=== PATIENT | female | born 1950 | race Caucasian/White ===

== ENCOUNTER 2024-04-05 13:53 | Outpatient (AMB) | payer MEDICAID, SELFPAY ==
--- NOTE | 2024-04-05 14:07 | MHC.PC.OV ---
Vital Signs 04/05/24 14:11 Height 5 ft 0.9 in Weight 165 lb BMI 31.3 BP 138/80 Blood Pressure Location Rt brachial Position Sitting Pulse 87 Pulse Source Pulse Oximeter Pulse Oximetry (%) 96 Oxygen Delivery Method Room Air Intake Visit Reasons: New patient visit ok per Dr. Cintron Intake Note: Pt is here today for New patient visit. Allergies No Known Allergies Allergy (Verified 04/05/24 14:12) Medication List - Last Reconciled 04/05/24 by Shruthi Cintron MD bisoprolol fumarate 2.5 mg (1/2 x 5 mg) PO DAILY fluticasone furoate-vilanterol 100-25 mcg/dose (Breo Ellipta) 1 inh inhalation DAILY Tobacco use date assessed: 04/05/24 Fall risk assessment: No Falls in past year Last assessed Fall Risk: 04/05/24 Dental Screening Dental Screen Date: 04/05/24 Did you have a dental visit in the last 12 months?: No Did you have a dental problem in the last 6 months where you did not have access to dental care?: No Was dental information given to patient?: Patient declined HPI New patient visit ok per Dr. Cintron HPI Details Pt presents for [employer]ING [employer] visit. She moved from [place] few months ago. PMH includes HTN, hyperglycemia, question of COPD. Patient used to smoke but quit 20 years ago and reports intermittent chronic dry cough for which she use an inhaler with good relief. PFSH Medical History (Updated 04/05/24 @ 15:05 by Shruthi Cintron MD) Hx of tongue cancer Surgical History (Updated 04/05/24 @ 15:15 by Shruthi Cintron MD) Hx of cholecystectomy History of surgery of liver Family History Father Heart attack Hypertension Father Diabetes Social History Housing: House Patient Tobacco Use Status: Former Tobacco user (18 years ago) e-Cigarette/Vaping Use: Never Used service: No Current occupational status: retired Cognitive needs: No Hearing needs: No Vision needs: Yes Questionnaire PHQ-9 Over the last 2 weeks, how often have you been bothered by any of the following problems? 1. Little interest or pleasure in doing things: not at all 2. Feeling down, depressed, or hopeless: not at all 3. Trouble falling or staying asleep, or sleeping too much: not at all 4. Feeling tired or having little energy: several days 5. Poor appetite or overeating: not at all 6. Feeling bad about yourself - or that you are a failure or have let yourself or your family down: not at all 7. Trouble concentrating on things, such as reading the newspaper or watching television: not at all 8. Moving or speaking so slowly that other people could have noticed. Or the opposite - being so fidgety or restless that you have been moving around a lot more than usual: not at all 9. Thoughts that you would be better off or of hurting yourself in some way: not at all Total score: 1 Depression Screening Interpretation: Negative Depression Screening Done: Yes 80341 - PHQ-9 Billing: Yes Source: Developed by Drs. Carlitos Terry, Bryanna Reynoso, Jose Gilliam and colleagues, with an educational madan from [employer]. Thrive Questionnaire Date Thrive assessed: 04/03/24 I am a: Patient What is your living situation today?: I have a steady place to live Within the past 12 months, did the food you bought not last and you didn't have the money to get more?: I choose not to answer this question Within the past 12 months, did you worry whether your food would run out before you got money to buy more?: I choose not to answer this question Do you have trouble paying for medicines?: I choose not to answer this question Do you have trouble getting transportation to medical appointments?: I choose not to answer this question Do you have trouble paying your heating and electricity bill?: I choose not to answer this question Do you have trouble taking care of your child, family member or friend?: No Do you have trouble with day-to-day activities such as bathing, preparing meals, shopping, managing finances, etc.?: No Are you currently unemployed and looking for a job?: No Are you interested in more education?: No Please select the resources that you would like help with: None Currently or been in a relationship where the following occur: I choose not to answer THRIVE Score: 0 AUDIT C Alcohol Use Questionnaire (AUDIT-C) 1. How often do you have a drink containing alcohol?: Monthly or less 2. How many drinks containing alcohol do you have on a typical day when you are drinking?: 1 or 2 3. How often do you have six or more drinks on one occasion?: Never Total Score: 1 MICHELLE-7 AMB Questionnaire MICHELLE-7 Date MICHELLE - 7 assessed: 04/05/24 Feeling nervous, anxious, or on edge: 0 = Not at all Not being able to stop or control worryin = Not at all Worrying too much about different things: 1 = Several days Trouble relaxin = Not at all Being so restless that it is hard to sit still: 0 = Not at all Becoming easily annoyed or irritable: 1 = Several days Feeling afraid as if something awful might happen: 1 = Several days Total MICHELLE-7 score (0-4 normal; 5-9 mild; 10-14 moderate; 15-21 severe): 3 Source: Developed by Drs. Carlitos Terry, Bryanna Reynoso, Jose Gilliam and colleagues, with an educational madan from [employer]. MICHELLE-7 Assessment Billing MICHELLE-7 Assessment Tool: MICHELLE-7 Assessment 89173 Review of Systems Const All systems reviewed & are unremarkable except as noted in HPI and below Eyes Reports no additional complaints ENT Reports no additional complaints Card Reports no additional complaints Resp Reports no additional complaints GI Reports no additional complaints Reports no additional complaints Physical exam (Primary Care) Vital Signs: Last Vital Signs Pulse 87 04/05/24 14:11 Pulse Ox 96 04/05/24 14:11 Oxygen Delivery Method Room Air 04/05/24 14:11 BMI result Body Mass Index 31.3 Tobacco/Smoking Status: Tobacco use Status Tobacco use date assessed 04/05/24 04/05/24 14:25 Patient Tobacco Use Status Former Tobacco user (18 04/05/24 14:25 years ago) e-Cigarette/Vaping Use Never Used 04/05/24 14:25 PHQ-9: PHQ-9 Score PHQ-9: Total score 1 04/05/24 14:25 Depression Screening Interpretation: Negative Thrive Assessment: Date of Thrive Assessment Date Thrive assessed 04/03/24 04/05/24 14:07 Currently or been in a relationship where the following occur: I choose not to answer Const General: no acute distress HENMT Ears: hearing grossly normal bilaterally Face and sinus: Yes normal facial exam Throat: Yes posterior oropharynx normal Neck Neck: Yes no lymphadenopathy and Yes supple Resp Effort & Inspection: normal respiratory effort Auscultation: crackles (at bases b/l) and diminished lung sounds Cardio Rhythm: regular rhythm Heart sounds: S1 normal heart sound present and S2 normal heart sound present GI Inspection: Yes normal to inspection Palpation (GI): Soft to palpation Percussion: Yes normal to percussion Auscultation: normal bowel sounds Assessment and Plan Assessment & Plan (1) HTN (hypertension): Code(s): I10 - Essential (primary) hypertension Plan: Restart bisoprolol at 2.5 mg. Patient will return for fasting blood work and will follow-up in 6 weeks (2) Hyperglycemia: Code(s): R73.9 - Hyperglycemia, unspecified Plan: ADA diet increase physical activity weight loss discussed with the patient. Return for fasting labs including A1c (3) S/P cholecystectomy: Code(s): Z90.49 - Acquired absence of other specified parts of digestive tract (4) Hx of colonoscopy: Comment: 1 polyp 12/2023 in [place], patient will obtain a copy of pathology report Code(s): Z98.890 - Other specified postprocedural states Plan: Check pathology report from [facility] (5) Postmenopausal: Code(s): Z78.0 - Asymptomatic menopausal state Plan: Schedule mammogram and DEXA (6) Cough: Code(s): R05.9 - Cough, unspecified Plan: For chronic cough obtain chest x-ray (7) COPD (chronic obstructive pulmonary disease): Code(s): J44.9 - Chronic obstructive pulmonary disease, unspecified Plan: Try Breo 100 Orders: Orders MM screening mammo BI Today Z12.31 - Encounter for screening mammogram for malignant neoplasm of breast, Z78.0 - Asymptomatic menopausal state XR chest 2V Today R05.9 - Cough, unspecified Comprehensive [place]. Panel Fast Today I10 - Essential (primary) hypertension, J44.9 - Chronic obstructive pulmonary disease, unspecified, R73.9 - Hyperglycemia, unspecified TSH reflex Free T4 Today I10 - Essential (primary) hypertension, J44.9 - Chronic obstructive pulmonary disease, unspecified, R73.9 - Hyperglycemia, unspecified Hemoglobin A1c Today I10 - Essential (primary) hypertension, J44.9 - Chronic obstructive pulmonary disease, unspecified, R73.9 - Hyperglycemia, unspecified UA w Microscopic Today I10 - Essential (primary) hypertension, R73.9 - Hyperglycemia, unspecified XR DEXA axial skeleton Today Z78.0 - Asymptomatic menopausal state Complete Blood Count Auto Diff Today I10 - Essential (primary) hypertension, J44.9 - Chronic obstructive pulmonary disease, unspecified, R73.9 - Hyperglycemia, unspecified Lipid Panel Today I10 - Essential (primary) hypertension, J44.9 - Chronic obstructive pulmonary disease, unspecified, R73.9 - Hyperglycemia, unspecified Vitamin D 25-OH Total Today I10 - Essential (primary) hypertension, J44.9 - Chronic obstructive pulmonary disease, unspecified, R73.9 - Hyperglycemia, unspecified Microalbumin, Random (w Creat) Today I10 - Essential (primary) hypertension, R73.9 - Hyperglycemia, unspecified Medications: New bisoprolol fumarate 2.5 mg (1/2 x 5 mg) PO DAILY 90 tabs 0RF fluticasone furoate-vilanterol 100-25 mcg/dose (Breo Ellipta) 1 inh inhalation DAILY 60 ea 2RF Coding Level of Care Code New Pt Level 4 (31287) Diagnoses HTN (hypertension) I10 Hyperglycemia R73.9 S/P cholecystectomy Z90.49 Hx of colonoscopy Z98.890 Postmenopausal Z78.0 Cough R05.9 COPD (chronic obstructive pulmonary disease) J44.9 Additional Codes MICHELLE-7 Assessment Billing - MICHELLE-7 Assessment Tool: MICHELLE-7 Assessment 16215 ([id number])
[2024-04-05 14:11] VITALS: BP 138/80; PULSE 87; O2SAT 96; BMI 31.3
== END 2024-04-05 15:15 | disposition home or self-care (01) ==
PROVIDERS: Visit Provider Internal Medicine
DX: I10 Essential (primary) hypertension (principal); R73.9 Hyperglycemia, unspecified; Z90.49 Acquired absence of other specified parts of digestive tract; Z98.890 Other specified postprocedural states; Z78.0 Asymptomatic menopausal state; R05.9 Cough, unspecified; J44.9 Chronic obstructive pulmonary disease, unspecified

== ENCOUNTER → 2024-04-05 13:53 | Outpatient (BNVA) | payer MEDICAID, SELFPAY | PROVIDERS: Visit Provider Internal Medicine ==

== ENCOUNTER 2024-04-05 15:14 | Outpatient (REF) | payer MEDICAID, SELFPAY ==
--- NOTE | ~2024-04-05 | XR_ITS ---
EXAMINATION: XR CHEST CLINICAL INFORMATION: Cough COMPARISON: None available. TECHNIQUE: 2 views of the chest were obtained. FINDINGS: Heart and mediastinum within normal limits. Aortic and mitral annular calcifications. No vascular congestion, consolidations and minor basilar atelectasis. Degenerative changes and demineralization. Multilevel dorsal compression deformities. XR/XR chest 2V IMPRESSION: Minor atelectasis otherwise no acute cardiopulmonary disease. Electronically signed by: Marta Longoria MD 04/05/2024 05:49 PM EDT
== END 2024-04-05 15:15 | disposition home or self-care (01) ==
LOC: HO.HMGCX 15:14
PROVIDERS: PCP Internal Medicine; Visit Provider Internal Medicine
DX: R05.9 Cough, unspecified (principal); I10 Essential (primary) hypertension; J44.9 Chronic obstructive pulmonary disease, unspecified; Z78.0 Asymptomatic menopausal state; R73.9 Hyperglycemia, unspecified; Z90.49 Acquired absence of other specified parts of digestive tract; Z98.890 Other specified postprocedural states
CPT/HCPCS: 71046; 96127; 99202

== ENCOUNTER 2024-04-09 08:29 | Outpatient (REF) | payer MEDICAID, SELFPAY ==
[2024-04-09 11:00] LABS: Appearance Urine Clear; Color Urine Yellow; Glucose Urine UA Negative (Negative); Leukocyte Esterase Urine Moderate (2+) (Negative); Nitrite Urine Negative (Negative); PH 6.5 (5.0-9.0); UMIC TRIGGER UA YES; Urine Blood Negative (Negative); Urine Ketones Negative (Negative); Urine Protein Trace mg/dL (Neg-Trace)
[2024-04-09 11:03] LABS: Bacteria Urine None Seen (None Seen); Hyaline Casts Urine 0-2 /LPF (0-2); RBC Urine 0-2 /HPF (0-2)
[2024-04-09 11:21] LABS: MANUAL DIFF FLAG NO
[2024-04-09 11:28] LABS: Basophils Percent Auto 0.6 % (0-2); Eosinophils Absolute Auto 0.1 X10*3/uL (0.0-0.4); Eosinophils Percent Auto 1.9 % (0-4); Hematocrit 43.3 % (37.0-47.0); Hemoglobin 14.2 g/dl (12.0-16.0); Imm Gran Abs Auto 0.01 X10*3/uL (0.00-0.03); Imm Gran Pct Auto 0.2 % (0.0-0.4); Lymphocytes Absolute Auto 1.1 X10*3/uL (1.2-4.9); Lymphocytes Percent Auto 16.6 % (20-40); Mean Corpuscular HGB Conc 32.8 g/dl (31.0-35.0); Mean Corpuscular Hemoglobin 30.5 pg (27.0-33.0); Mean Corpuscular Volume 93.1 fL (80.0-98.0); Mean Platelet Volume 11.5 fL (9.4-12.3); Monocytes Absolute Auto 0.5 X10*3/uL (0.1-1.2); Monocytes Percent Auto 8.3 % (2-11); Neutrophils Absolute Auto 4.6 x10*3/uL (2.0-8.3); Neutrophils Percent Auto 72.4 % (45-73); Platelet Count 203 X10*3/uL (160-400); Red Blood Count 4.65 X10*6/uL (4.20-5.50); White Blood Count 6.4 X10*3/uL (4.8-10.8)
[2024-04-09 11:56] LABS: Alanine Aminotransferase 15 U/L (0-31); Albumin Level 4.4 g/dL (3.5-5.0); Alkaline Phosphatase 53 U/L (39-117); Anion Gap 10 (12-20); Aspartate Amino Transferase 22 U/L (5-31); Bilirubin Total 0.6 mg/dL (0.0-1.0); Blood Urea Nitrogen 15 mg/dL (9-16); Calcium 9.7 mg/dL (8.4-10.2); Carbon Dioxide 30 mmol/L (22-29); Chloride 104 mmol/L (96-108); Cholesterol 190 mg/dL (<200); Estimated Glomerular Filt Rate > 60; Glucose Fasting 107 mg/dL (60-99); HDL Cholesterol 55 mg/dL (>40); LDL Cholesterol Calculated 113 mg/dL (<100); Potassium 4.4 mmol/L (3.3-5.1); Sodium 140 mmol/L (135-145); Total Protein 7.1 g/dL (6.5-8.0); Triglycerides 113 mg/dL (<150)
[2024-04-09 11:58] LABS: TSH reflex Free T4 0.99 uIU/mL (0.32-4.0); Vitamin D 25-OH Total 47.3 ng/mL (>30)
[2024-04-09 12:10] LABS: Creatinine Urine 169.49 mg/dL; Microalbum/Creatinine Ratio Ur 27.1 ug/mg cr (<30)
[2024-04-09 12:11] LABS: Estimated Average Glucose 103 mg/dL; Hemoglobin A1C 120.3211 umol/L; Hemoglobin A1c % 5.2 % (<6.0)
== END 2024-04-09 08:30 | disposition home or self-care (01) ==
LOC: HO.HMGCLDS 08:29
PROVIDERS: PCP Internal Medicine; Visit Provider Internal Medicine
DX: I10 Essential (primary) hypertension (principal); R73.9 Hyperglycemia, unspecified; J44.9 Chronic obstructive pulmonary disease, unspecified
CPT/HCPCS: 36415; 80053; 80061; 81001; 82043; 82306; 82570; 83036; 84443; 85025

== ENCOUNTER 2024-05-25 08:21 | Outpatient (REF) | payer MEDICAID, SELFPAY ==
[2024-05-25 14:28] LABS: Folate 15.3 ng/mL (> or = 4.0); Vitamin B12 289 pg/mL (200-900)
== END 2024-05-25 08:22 | disposition home or self-care (01) ==
LOC: HO.HMGCLDS 08:21
PROVIDERS: PCP Internal Medicine; Visit Provider Internal Medicine
DX: G62.9 Polyneuropathy, unspecified (principal); G56.02 Carpal tunnel syndrome, left upper limb; M79.604 Pain in right leg; M79.605 Pain in left leg; I10 Essential (primary) hypertension; I73.9 Peripheral vascular disease, unspecified
CPT/HCPCS: 36415; 82607; 82746; 96127; 99212

== ENCOUNTER 2024-05-25 08:21 | Outpatient (AMB) | payer MEDICAID, SELFPAY ==
[2024-05-25 08:26] VITALS: BP 138/84; PULSE 70; O2SAT 96; BMI 31.5
--- NOTE | 2024-05-25 08:26 | A.OFFPC_ITS ---
Vital Signs 05/25/24 08:26 Height 5 ft 0.9 in Weight 166 lb BMI 31.5 BP 138/84 Blood Pressure Location Lt brachial Position Sitting Pulse 70 Pulse Source Pulse Oximeter Pulse Oximetry (%) 96 Oxygen Delivery Method Room Air Intake Visit Reasons: 6-7 week follow up Intake Note: Pt is here today for a follow up visit. Allergies No Known Allergies Allergy (Verified 05/25/24 08:33) Medication List - Last Reconciled 05/25/24 by Shruthi Cintron MD bisoprolol fumarate 2.5 mg (1/2 x 5 mg) PO DAILY fluticasone furoate-vilanterol 100-25 mcg/dose (Breo Ellipta) 1 inh inhalation DAILY gabapentin 300 mg PO BEDTIME Tobacco use date assessed: 04/05/24 Dental Screening Dental Screen Date: 04/05/24 HPI 6-7 week follow up HPI Details Pt presents for f/u HTN and COPD, better on meds. Pt c/o L hand tingling and weakness getting wose and bilateral foot tingling worse when walking. Pt denies weakness in extremities or change in the balance. REPLACED BY [facility] Medical History (Updated 05/25/24 @ 11:03 by Shruthi Cintron MD) Hx of tongue cancer Surgical History Hx of cholecystectomy History of surgery of liver Family History Father Heart attack Hypertension Father Diabetes Social History Housing: House Patient Tobacco Use Status: Former Tobacco user (18 years ago) e-Cigarette/Vaping Use: Never Used service: No Current occupational status: retired Cognitive needs: No Hearing needs: No Vision needs: Yes Questionnaire PHQ-9 Over the last 2 weeks, how often have you been bothered by any of the following problems? 1. Little interest or pleasure in doing things: not at all 2. Feeling down, depressed, or hopeless: not at all 3. Trouble falling or staying asleep, or sleeping too much: not at all 4. Feeling tired or having little energy: not at all 5. Poor appetite or overeating: not at all 6. Feeling bad about yourself - or that you are a failure or have let yourself or your family down: not at all 7. Trouble concentrating on things, such as reading the newspaper or watching television: several days 8. Moving or speaking so slowly that other people could have noticed. Or the opposite - being so fidgety or restless that you have been moving around a lot more than usual: not at all 9. Thoughts that you would be better off or of hurting yourself in some way: not at all Total score: 1 Depression Screening Interpretation: Negative Depression Screening Done: Yes 75022 - PHQ-9 Billing: Yes Source: Developed by Drs. Carlitos Terry, Bryanna Reynoso, Jose Gilliam and colleagues, with an educational madan from [employer]. Thrive Questionnaire Date Thrive assessed: 04/03/24 I am a: Patient What is your living situation today?: I have a steady place to live Within the past 12 months, did the food you bought not last and you didn't have the money to get more?: I choose not to answer this question Within the past 12 months, did you worry whether your food would run out before you got money to buy more?: I choose not to answer this question Do you have trouble paying for medicines?: I choose not to answer this question Do you have trouble getting transportation to medical appointments?: I choose not to answer this question Do you have trouble paying your heating and electricity bill?: I choose not to answer this question Do you have trouble taking care of your child, family member or friend?: No Do you have trouble with day-to-day activities such as bathing, preparing meals, shopping, managing finances, etc.?: No Are you currently unemployed and looking for a job?: No Are you interested in more education?: No Please select the resources that you would like help with: None Currently or been in a relationship where the following occur: I choose not to answer THRIVE Score: 0 MICHELLE-7 AMB Questionnaire MICHELLE-7 Date MICHELLE - 7 assessed: 04/05/24 Source: Developed by Drs. Carlitos Terry, Jose Shukla and colleagues, with an educational madan from [employer]. Review of Systems Const All systems reviewed & are unremarkable except as noted in HPI and below Eyes Reports no additional complaints ENT Reports no additional complaints Card Reports no additional complaints Resp Reports no additional complaints GI Reports no additional complaints Reports no additional complaints Musc Reports no additional complaints Physical exam (Primary Care) Vital Signs: Last Vital Signs Pulse 70 05/25/24 08:26 BP 138/84 05/25/24 08:26 Pulse Ox 96 05/25/24 08:26 Oxygen Delivery Method Room Air 05/25/24 08:26 BMI result Body Mass Index 31.5 Tobacco/Smoking Status: Tobacco use Status Tobacco use date assessed 04/05/24 05/25/24 08:26 Patient Tobacco Use Status Former Tobacco user (18 05/25/24 08:26 years ago) e-Cigarette/Vaping Use Never Used 05/25/24 08:26 PHQ-9: PHQ-9 Score PHQ-9: Total score 1 05/25/24 09:57 Depression Screening Interpretation: Negative Thrive Assessment: Date of Thrive Assessment Date Thrive assessed 04/03/24 05/25/24 08:26 Currently or been in a relationship where the following occur: I choose not to answer Const General: no acute distress HENMT Ears: hearing grossly normal bilaterally Eyes General: appearance normal, both eyes and all related structures Resp Effort & Inspection: normal respiratory effort Auscultation: clear to auscultation bilaterally Cardio Rhythm: regular rhythm Heart sounds: S1 normal heart sound present and S2 normal heart sound present GI Inspection: Yes normal to inspection Palpation (GI): Soft to palpation Percussion: Yes normal to percussion Auscultation: normal bowel sounds Neuro Romberg Test: Negative Extrem Other: There is decreased sensation both lower extremities to monofilament and vibration at the lower socks level General: Yes no clubbing, cyanosis or edema Coding Level of Care Code Est Pt Level 4 (57195) Complex EM visit Add On G2211 Diagnoses Carpal tunnel syndrome of left wrist G56.02 Neuropathy G62.9 Leg pain, bilateral M79.604; M79.605 HTN (hypertension) I10 Additional Codes PHQ-9 - 89210 - PHQ-9 Billing: Yes ([id number]) Assessment & Plan Assessment & Plan (1) Carpal tunnel syndrome of left wrist: Code(s): G56.02 - Carpal tunnel syndrome, left upper limb Category: Medical Plan: Check EMG to evaluate for carpal tunnel syndrome (2) Neuropathy: Code(s): G62.9 - Polyneuropathy, unspecified Category: Medical Plan: Check vitamin B12 level start gabapentin 300 mg q.h.s. (3) Leg pain, bilateral: Code(s): M79.604 - Pain in right leg; M79.605 - Pain in left leg Category: Medical Plan: Obtain arterial Doppler to evaluate for peripheral artery disease (4) HTN (hypertension): Code(s): I10 - Essential (primary) hypertension Category: Medical Plan: Add 10 mg of lisinopril to 2.5 mg of bisoprolol follow-up in 1 month Orders: Orders NE electromyogram (EMG) Today G56.02 - Carpal tunnel syndrome, left upper limb Vitamin B12 and Folate Today G62.9 - Polyneuropathy, unspecified US arterial duplex LE BI Today G62.9 - Polyneuropathy, unspecified, I73.9 - Peripheral vascular disease, unspecified, M79.604 - Pain in right leg, M79.605 - Pain in left leg Medications: New gabapentin 300 mg PO BEDTIME 30 caps 1RF lisinopril 10 mg PO DAILY 90 tabs 1RF
== END 2024-05-25 09:54 | disposition home or self-care (01) ==
LOC: HO.HMCC 08:22
PROVIDERS: Visit Provider Internal Medicine
DX: G56.02 Carpal tunnel syndrome, left upper limb (principal); G62.9 Polyneuropathy, unspecified; M79.604 Pain in right leg; M79.605 Pain in left leg; I10 Essential (primary) hypertension

== ENCOUNTER 2024-06-07 07:44 | Outpatient (REF) | payer MEDICAID, SELFPAY ==
--- NOTE | 2024-06-07 07:47 | EMG_ITS ---
Left median and ulnar motor and sensory studies were performed. Left radial sensory study was performed and paraspinal muscles were tested with a needle. IMPRESSION: Moderate to severe left median neuropathy across carpal tunnel. MD MARCELO Leon/BERTRAND / [id number]
== END 2024-06-07 07:45 | disposition home or self-care (01) ==
LOC: HO.NEURO 07:44
PROVIDERS: PCP Internal Medicine; Visit Provider Internal Medicine
DX: G56.02 Carpal tunnel syndrome, left upper limb (principal)
CPT/HCPCS: 95886; 95909

== ENCOUNTER 2024-06-09 08:14 | Outpatient (REF) | payer MEDICAID, SELFPAY ==
--- NOTE | ~2024-06-09 | MM_ITS ---
EXAMINATION: BONE DENSITOMETRY CLINICAL INDICATION: Asymptomatic menopausal state. COMPARISON: This is the patient's baseline examination. TECHNIQUE: Using a [employer] DXA System (software version: 13.1) manufactured by [employer], dual-energy x-ray absorptiometry was performed of the lumbar spine and left hip. The images are of good technical quality. Summary results are attached. FINDINGS: LEFT FEMUR, NECK: BMD 0.915 g/cm2, Z-score 0.7, T-score -0.9, normal. LEFT FEMUR, TOTAL: BMD 0.967 g/cm2, Z-score 1.1, T-score -0.3, normal. AP SPINE L1-L2 (excluding L3 and L4): The data of L1-L4 has been changed to exclude the L3 and L4 vertebral bodies, because significant degenerative change at these levels may cause overestimation of lumbar spine density. BMD 1.202 g/cm2, Z-score 1.7, T-score 0.3, normal. IDENTIFIED RISK FACTORS: Menopause, secondary osteoporosis (chronic liver disease). HISTORY OF FRACTURE: None listed. MEDICATIONS: Vitamin D. MM/XR DEXA axial skeleton IMPRESSION: 1. DIAGNOSIS: Normal bone density based on the lowest T-score value of -0.9 in the femoral neck applying World Health Organization criteria. 2. 10-YEAR FRACTURE RISK PREDICTION, FRAX: According to the guidelines, FRAX calculation should only be performed on patients in the osteopenia bone density category. Therefore, FRAX was not performed on this patient. 3. Treatment Recommendations: NOF guidelines recommend consideration for treatment in postmenopausal women and men age 50 and older presenting with the following: -A hip or vertebral (clinical or morphometric) fracture. -T-score less than or equal to -2.5 at the femoral neck or spine after appropriate evaluation to exclude secondary causes. -Low bone mass at the hip or spine and a 10-year fracture probability by FRAX of greater than or equal to 3% for hip fracture or greater than or equal to 20% for major osteoporotic fracture based on the [place] adapted WHO algorithm. 4. Other Recommendations: All treatment decisions require clinical judgment and consideration of individual patient factors, including patient preferences, comorbidities, previous drug use, risk factors not captured in the FRAX model (e.g. frailty, falls, vitamin D deficiency, increased bone turnover, interval significant decline in bone density) and possible under or overestimation of fracture risk by FRAX. FUTURE SCAN RECOMMENDATION: People with diagnosed cases of osteoporosis or at high risk for fracture should have regular bone mineral density tests. For patients eligible for Medicare, routine testing is allowed once every 2 years. The testing frequency can be increased to one year for patients who have rapidly progressing disease, those who are receiving or discontinuing medical therapy to restore bone mass, or have additional risk factors. Electronically signed by: Joe Rosado MD 06/09/2024 12:01 PM [facility]
--- NOTE | ~2024-06-09 | MM_ITS ---
EXAMINATION: MM SCREENING DIGITAL BREAST TOMOSYNTHESIS, BILATERAL CLINICAL INFORMATION: Screening. Asymptomatic. COMPARISON: Mammography: Baseline. TECHNIQUE: Digital breast mammography with tomosynthesis is performed in both the craniocaudal and mediolateral oblique views along with computer-aided detection (CAD). FINDINGS: There are scattered areas of fibroglandular density (ACR BI-RADS breast composition Category b). There are no significant masses, abnormal calcifications, or other abnormalities. MM/MM tomosynthesis screening BI IMPRESSION: No mammographic evidence of malignancy. ASSESSMENT: BI-RADS BI-RADS 1 - Negative RECOMMENDATION: Routine annual mammography screening. 1 year F/U This examination should not preclude the clinical evaluation of a suspicious palpable abnormality. This patient's information was entered into a reminder system with a target due date for their next mammogram. Electronically signed by: Sara Small DO 06/20/2024 09:11 AM [facility]
== END 2024-06-09 08:15 | disposition home or self-care (01) ==
LOC: HO.MAMMO 08:14
PROVIDERS: PCP Internal Medicine; Visit Provider Internal Medicine
DX: Z12.31 Encounter for screening mammogram for malignant neoplasm of breast (principal); Z13.820 Encounter for screening for osteoporosis; Z78.0 Asymptomatic menopausal state
CPT/HCPCS: 77063; 77067; 77080

== ENCOUNTER → 2024-06-09 08:30 | Outpatient (BNV) | payer MEDICAID, SELFPAY | PROVIDERS: PCP Internal Medicine; Visit Provider Internal Medicine | DX: Z12.31 Encounter for screening mammogram for malignant neoplasm of breast (principal) | CPT/HCPCS: 77063; 77067 ==

== ENCOUNTER 2024-06-13 08:21 | Outpatient (REF) | payer MEDICAID, SELFPAY ==
--- NOTE | ~2024-06-13 | US_ITS ---
EXAMINATION: Noninvasive assessment of the bilateral lower extremities with ARTERIAL DUPLEX, ANKLE BRACHIAL INDICES (ABIs), and PULSE VOLUME RECORDINGS (PVRs). CLINICAL INFORMATION: Polyneuropathy TECHNIQUE: Duplex Doppler techniques with waveform analysis and measurement of velocities in the bilateral common femoral, profunda femoris, superficial femoral, popliteal and tibial arteries were performed. Additionally, ankle pulse volume recordings, ankle pressure measurements and ankle brachial indices were obtained of the lower extremity arterial system bilaterally. The study was performed only at rest. COMPARISON: None FINDINGS: DIRECT DUPLEX DOPPLER FINDINGS: RIGHT LEG: Common femoral artery: 99 cm/s, phasicity: Biphasic Profunda femoris artery: 65 cm/s, phasicity: Biphasic Superficial femoral artery (proximal): 70 cm/s, phasicity: Biphasic Superficial femoral artery (mid): 62 cm/s, phasicity: Biphasic Superficial femoral artery (distal): 49 cm/s, phasicity: Biphasic Popliteal artery: 62 cm/s, phasicity: Biphasic Posterior tibial artery: 60 cm/s, phasicity: Biphasic Peroneal artery: 65 cm/s, phasicity: Biphasic Anterior tibial artery: 55 cm/s, phasicity: Biphasic Dorsalis pedis artery: 67 cm/s, phasicity:Biphasic LEFT LEG: Common femoral artery: 104 cm/s, phasicity: Triphasic Profunda femoris artery: 47 cm/s, phasicity: Monophasic Superficial femoral artery (proximal): 66 cm/s, phasicity: Biphasic Superficial femoral artery (mid): 47 cm/s, phasicity: Biphasic Superficial femoral artery (distal): 45 cm/s, phasicity: Biphasic Popliteal artery: 56 cm/s, phasicity: Biphasic Posterior tibial artery: 68 cm/s, phasicity: Biphasic Peroneal artery: 44 cm/s, phasicity: Biphasic Anterior tibial artery: 59 cm/s, phasicity: Biphasic Dorsalis pedis artery: 62 cm/s, phasicity: Biphasic Left Hendrickson's cyst measures 5.1 x 1.8 x 3.9 cm. US/US arterial duplex LE BI IMPRESSION: 1. No evidence of hemodynamically significant stenosis in the bilateral lower extremities by velocity criteria. 2. Dampened velocity and waveform in the left profunda femoris artery suggests atherosclerotic disease. 3. Left Hendrickson's cyst measures 5.1 cm. Electronically signed by: Elinor Lewis MD 07/15/2024 05:40 PM EST
== END 2024-06-13 08:22 | disposition home or self-care (01) ==
LOC: HO.US 08:21
PROVIDERS: PCP Internal Medicine; Visit Provider Internal Medicine
DX: M79.605 Pain in left leg (principal); M79.604 Pain in right leg; G62.9 Polyneuropathy, unspecified; I73.9 Peripheral vascular disease, unspecified
CPT/HCPCS: 93925

== ENCOUNTER 2024-06-29 13:37 | Outpatient (AMB) | payer MEDICAID, SELFPAY ==
[2024-06-29 13:39] VITALS: BP 128/80; PULSE 65; O2SAT 97; BMI 31.7
--- NOTE | 2024-06-29 13:39 | MHC.PC.OV ---
Vital Signs 06/29/24 13:39 Height 5 ft 0.9 in Weight 167 lb BMI 31.7 BP 128/80 Blood Pressure Location Rt brachial Position Sitting Pulse 65 Pulse Source Pulse Oximeter Pulse Oximetry (%) 97 Oxygen Delivery Method Room Air Intake Visit Reasons: 5 week f/u Intake Note: Pt is here today for 5 weeks follow up visit. Allergies No Known Allergies Allergy (Verified 06/29/24 13:41) Medication List - Last Reconciled 06/29/24 by Shruthi Cintron MD bisoprolol fumarate 2.5 mg (1/2 x 5 mg) PO DAILY fluticasone furoate-vilanterol 100-25 mcg/dose (Breo Ellipta) 1 inh inhalation DAILY gabapentin 300 mg PO BEDTIME lisinopril 10 mg PO DAILY Tobacco use date assessed: 04/05/24 Dental Screening Dental Screen Date: 04/05/24 HPI 5 week f/u HPI Details Patient presents for the follow-up on hypertension COPD stable on current medications. She has an appointment scheduled with hand surgeon for left carpal tunnel . Patient complains of chronic right groin pain worse when walking for long time radiating to upper thigh. Patient denies any pain at rest, lower back pain weakness or numbness in extremities or back pain. [facility] Medical History (Updated 06/29/24 @ 15:14 by Shruthi Cintron MD) Hx of tongue cancer Surgical History Hx of cholecystectomy History of surgery of liver Family History Father Heart attack Hypertension Father Diabetes Social History Housing: House Patient Tobacco Use Status: Former Tobacco user (18 years ago) e-Cigarette/Vaping Use: Never Used service: No Current occupational status: retired Cognitive needs: No Hearing needs: No Vision needs: Yes Questionnaire Thrive Questionnaire Date Thrive assessed: 04/03/24 I am a: Patient What is your living situation today?: I have a steady place to live Within the past 12 months, did the food you bought not last and you didn't have the money to get more?: I choose not to answer this question Within the past 12 months, did you worry whether your food would run out before you got money to buy more?: I choose not to answer this question Do you have trouble paying for medicines?: I choose not to answer this question Do you have trouble getting transportation to medical appointments?: I choose not to answer this question Do you have trouble paying your heating and electricity bill?: I choose not to answer this question Do you have trouble taking care of your child, family member or friend?: No Do you have trouble with day-to-day activities such as bathing, preparing meals, shopping, managing finances, etc.?: No Are you currently unemployed and looking for a job?: No Are you interested in more education?: No Please select the resources that you would like help with: None Currently or been in a relationship where the following occur: I choose not to answer THRIVE Score: 0 MICHELLE-7 AMB Questionnaire MICHELLE-7 Date MICHELLE - 7 assessed: 04/05/24 Source: Developed by Drs. Carlitos Terry, Bryanna Reynoso, Jose Gilliam and colleagues, with an educational madan from [employer]. Review of Systems Const All systems reviewed & are unremarkable except as noted in HPI and below Eyes Reports no additional complaints ENT Reports no additional complaints Card Reports no additional complaints Resp Reports no additional complaints GI Reports no additional complaints Reports no additional complaints Physical exam (Primary Care) Vital Signs: Last Vital Signs Pulse 65 06/29/24 13:39 BP 128/80 06/29/24 13:39 Pulse Ox 97 06/29/24 13:39 Oxygen Delivery Method Room Air 06/29/24 13:39 BMI result Body Mass Index 31.7 Tobacco/Smoking Status: Tobacco use Status Tobacco use date assessed 04/05/24 06/29/24 13:39 Patient Tobacco Use Status Former Tobacco user (18 06/29/24 13:39 years ago) e-Cigarette/Vaping Use Never Used 06/29/24 13:39 Thrive Assessment: Date of Thrive Assessment Date Thrive assessed 04/03/24 06/29/24 13:39 Currently or been in a relationship where the following occur: I choose not to answer Const General: no acute distress HENMT Head: Yes normal to inspection Throat: Yes posterior oropharynx normal Resp Effort & Inspection: normal respiratory effort Auscultation: clear to auscultation bilaterally Cardio Rhythm: regular rhythm Heart sounds: S1 normal heart sound present and S2 normal heart sound present GI Inspection: Yes normal to inspection Palpation (GI): Soft to palpation Percussion: Yes normal to percussion Auscultation: normal bowel sounds Extrem Other: Slightly decreased range of motion in the right hip, straight leg rising 90 degrees bilaterally, no reproducible tenderness over trochanteric or anterior thigh area General: Yes no clubbing, cyanosis or edema Coding Level of Care Code Est Pt Level 4 (55139) Diagnoses Hip pain, right M25.551 HTN (hypertension) I10 COPD (chronic obstructive pulmonary disease) J44.9 Hyperglycemia R73.9 Assessment & Plan Assessment & Plan (1) Hip pain, right: Code(s): M25.551 - Pain in right hip Category: Medical Plan: Check x-ray of right hip, hip flexor exercises given to the patient. She declined physical therapy (2) HTN (hypertension): Code(s): I10 - Essential (primary) hypertension Category: Medical Plan: Increase lisinopril to 20 mg a day continue bisoprolol, check basic metabolic panel in 10 days follow-up in 3 months (3) COPD (chronic obstructive pulmonary disease): Code(s): J44.9 - Chronic obstructive pulmonary disease, unspecified Category: Medical Plan: Continue Breo (4) Hyperglycemia: Comment: Diet-controlled, A1C 5.2 04/2024 Code(s): R73.9 - Hyperglycemia, unspecified Category: Medical Plan: Continue ADA diet Orders: Orders Basic Metabolic Panel 07/09/24 I10 - Essential (primary) hypertension XR hip RT w PEL1V Today M25.551 - Pain in right hip Medications: Changed From lisinopril 10 mg PO DAILY 90 tabs 1RF To lisinopril 10 mg PO BID 180 tabs 1RF
== END 2024-06-29 15:19 | disposition home or self-care (01) ==
PROVIDERS: Visit Provider Internal Medicine
DX: M25.551 Pain in right hip (principal); I10 Essential (primary) hypertension; J44.9 Chronic obstructive pulmonary disease, unspecified; R73.9 Hyperglycemia, unspecified

== ENCOUNTER 2024-07-06 14:10 | Outpatient (AMB) | payer MEDICAID, SELFPAY ==
[2024-07-06 14:16] VITALS: BMI 24.7
--- NOTE | 2024-07-06 14:16 | A.OFFVIS_ITS ---
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 States she is having numbness, weakness and weakness. Symptoms started to worsen about 6 months ago and has been constant. States she is having numbness in all her fingers daily. EMG done. 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 She is here with her son in law who acts as a high voltage electrician She complains of numbness in all digits of her left hand. She says her symptoms have worsened over the last 6 months and are now constant. She also complains of weakness and says she drops items often. [facility] Medical History (Updated 06/29/24 @ 15:14 by Shruthi Cintron MD) Hx of tongue cancer Surgical History Hx of cholecystectomy History of surgery of liver Family History Father Heart attack Hypertension Father Diabetes Social History (Updated 07/06/24 @ 14:24 by VAL Reyes) Housing: House Patient Tobacco Use Status: Former Tobacco user (18 years ago) e-Cigarette/Vaping Use: Never Used service: No Current occupational status: retired Current occupation: right hand Cognitive needs: No Hearing needs: No Vision needs: Yes Review of Systems Const All systems reviewed & are unremarkable except as noted in HPI and below Physical Exam Vital Signs: BMI result Body Mass Index 24.7 Const General: cooperative, healthy appearing and no acute distress Orientation/consciousness: patient oriented x3 HEENT Head: Yes normocephalic and Yes atraumatic Eyes EOM: EOMs intact bilaterally Resp Effort & Inspection: normal respiratory effort and able to speak in complete sentences Cardio Jugular venous distension: no JVD Skin General skin exam: turgor normal Rashes: no rashes Neuro General: patient oriented x3 Extrem Other: Evaluation of Left Upper Extremity: The patient is alert, oriented, and in no acute distress Neuro: Dense numbness in the median nerve distribution. Normal sensation to the small finger. No thenar or intrinsic wasting Good APB muscle belly firing and good finger cross Vascular: Cap refill brisk ROM: She can make a fist and extend all his digits Skin: No lacerations or abrasions. General: No Ecchymosis. No Erythema or evidence of infection. Radiographs: Left-side only IMPRESSION: Moderate to severe left median neuropathy across carpal tunnel. Luiz Davies MD 06/07/2024 Psych Appearance: grossly normal Affect: normal affect Attitude: cooperative Assessment & Plan Assessment & Plan (1) Carpal tunnel syndrome of left wrist: Code(s): G56.02 - Carpal tunnel syndrome, left upper limb Category: Medical Plan Assessment & Plan: 1. Left carpal tunnel syndrome, moderate-severe With dense numbness I educated her about this condition I discussed operative and non-operative treatment options The patient would like to proceed with surgery I explained the risks of her sensation not returning, but that surgery is important to maintain muscle function and preserve any sensation possible. She expressed understanding. I explained that it may take up to 9 months post-operatively for any sensation to return. The risks and benefits of operative treatment were discussed with the patient and the patient wishes to proceed with surgery. These risks include, but are not limited to risk of damage to blood vessels, nerves, tendons, infection, recurrence, incomplete relief of preoperative symptoms, persistent pain, possible need for further surgery and the risks associated with regional blocks and anesthesia. The plan is to take the patient to the operating room sometime in the next few weeks for the following procedures: 1. Left carpal tunnel release, under local All of the preoperative paperwork including the consent was reviewed today. All the patient's questions were answered. The patient understands that they will be contacted by our construction scheduler soon to schedule this procedure She denies Diabetes, blood thinners, asthma, heart, kidney issues She has COPD Scribed for Carlyn Hutchison MD by Pieter Calle, medical affairs director, on 07/06/24 at 2:30 PM, EST. Coding Level of Care Code New Pt Level 4 (51110) Diagnoses Carpal tunnel syndrome of left wrist G56.02
== END 2024-07-06 14:45 | disposition home or self-care (01) ==
PROVIDERS: PCP Internal Medicine; Visit Provider Orthopaedic Surgery
DX: G56.02 Carpal tunnel syndrome, left upper limb (principal)
CPT/HCPCS: 99204

== ENCOUNTER → 2024-07-06 14:10 | Outpatient (BNVA) | payer MEDICAID, SELFPAY | PROVIDERS: PCP Internal Medicine; Visit Provider Orthopaedic Surgery | DX: G56.02 Carpal tunnel syndrome, left upper limb (principal) | CPT/HCPCS: 99202 ==

== ENCOUNTER 2024-07-09 10:17 | Outpatient (REF) | payer MEDICAID, SELFPAY ==
[2024-07-09 11:31] LABS: Anion Gap 16 (12-20); Blood Urea Nitrogen 19 mg/dL (9-16); Calcium 9.7 mg/dL (8.4-10.2); Carbon Dioxide 24 mmol/L (22-29); Chloride 103 mmol/L (96-108); Estimated Glomerular Filt Rate > 60; Glucose Random 162 mg/dL (60-115); Potassium 4.6 mmol/L (3.3-5.1); Sodium 138 mmol/L (135-145)
== END 2024-07-09 10:18 | disposition home or self-care (01) ==
LOC: HO.HMGCLDS 10:17
PROVIDERS: PCP Internal Medicine; Visit Provider Internal Medicine
DX: I10 Essential (primary) hypertension (principal)
CPT/HCPCS: 36415; 80048

== ENCOUNTER 2024-09-15 12:46 | Day surgery (SDC) | payer MEDICAID, SELFPAY ==
--- NOTE | 2024-09-15 13:33 | MHC.SHP ---
Pre-Procedural Eval Section A - 24 Hr Update-Section A only Date of Service: 09/15/24 The patient is an INPATIENT: No Changes since office visit: No Cold of Flu in the past 2 weeks, No New Medical Problems, No Changes in Medication and No Patient answered all questions The patient has been examined within 24 hours of the surgical procedure. The History & Physical has been completed within 30 days and I have reviewed it.: Yes Section B - Complete if H&P > 30 days Chief Complaint: Carpal tunnel syndrome, left upper limb Allergies: Allergies Allergy/AdvReac Type Severity Reaction Status Date / Time No Known Allergies Allergy Verified 07/06/24 14:26 Plan Diagnosis/Plan: Unchanged I have reviewed the history and physical and performed a pertinent physical examination on my patient. No changes have occurred unless specified. Time Spent With Patient Time: Total time managing care of this patient today ____ minutes.
[2024-09-15 13:34] VITALS: BMI 25.3
--- NOTE | 2024-09-15 13:34 | W.PM.OPN ---
Operative Note Operative Note Date of Service: 09/15/24 Narrative: Preop diagnosis: 1. Right Carpal tunnel syndrome Postop diagnosis: same Procedure: 1. Right Carpal tunnel release Surgeon: Carlyn Hutchison MD Assembly Machine Offbearer: Roel MAYER Anesthesia: local block using 1% lidocaine with epinephrine Findings: Thickened transverse carpal ligament. EBL: Less than 5 mL Specimens: None Complications: None Disposition: Brought to recovery room in stable condition Plan: Follow-up for 10-14 days for wound check and suture removal Indications: The patient is a 73 years old, with right carpal tunnel syndrome that has been unresponsive to nonoperative management. The risks and benefits of operative treatment including but not limited to risk of damage to blood vessels, nerves, tendons, infection, persistent pain, persistent symptoms, or possible need for additional surgery were discussed with the patient and the patient wishes to proceed with surgery. Procedure: Once consent was obtained a local block was performed using a combination of 1% lidocaine with epinephrine. The patient was then brought back to the operating suite and placed on the operative table in supine position. The right upper extremity was prepped and draped in a standard surgical fashion. Once assured that we had a good block, a 2.0 cm longitudinal incision was made centered over the carpal tunnel. The incision was made through the skin to the subcutaneous tissues using a #15 blade. Dissection was made down to the level of the transverse carpal ligament with care being taken to protect the palmar cutaneous nerve. Once the transverse carpal ligament was clearly visualized, a longitudinal incision was made in the transverse carpal ligament 1st using a #15 blade, then using tenotomy scissors under direct visualization. Care was taken to look for and protect the motor branch of the median nerve when seen in this area. Once satisfied with our carpal tunnel release the wound was copiously irrigated with normal saline and hemostasis was obtained with a brief period of local pressure. The skin edges were reapproximated with some 5.0 nylon suture material and a sterile dressing was applied. The patient appears to have tolerated the procedure well and with no complications. All digits were well vascularized at the conclusion of the case.
[2024-09-15 13:35] VITALS: BP 141/71; PULSE 78; RESP 16; TEMP 36.8; O2SAT 96
[2024-09-15 14:51] VITALS: BP 169/75; PULSE 69; RESP 15; O2SAT 96
== END 2024-09-15 14:53 | disposition home or self-care (01) ==
PROVIDERS: PCP Internal Medicine; Visit Provider Orthopaedic Surgery
PROC: (CPT 64721; principal; 2024-09-15 14:40)
DX: G56.02 Carpal tunnel syndrome, left upper limb (principal); R20.0 Anesthesia of skin; Z85.810 Personal history of malignant neoplasm of tongue; Z87.891 Personal history of nicotine dependence; Z90.49 Acquired absence of other specified parts of digestive tract; Z98.890 Other specified postprocedural states
CPT/HCPCS: 64721; J0171; J2003

== ENCOUNTER → 2024-09-15 12:46 | Outpatient (BNV) | payer MEDICAID, SELFPAY | PROVIDERS: PCP Internal Medicine; Visit Provider Orthopaedic Surgery | DX: G56.01 Carpal tunnel syndrome, right upper limb (principal) | CPT/HCPCS: 64721 ==

== ENCOUNTER 2024-09-26 14:10 | Outpatient (AMB) | payer MEDICAID, SELFPAY ==
[2024-09-26 14:39] VITALS: BP 120/78; PULSE 69; RESP 15; O2SAT 94; BMI 25.2
--- NOTE | 2024-09-26 14:39 | A.OFFPC_ITS ---
Vital Signs 09/26/24 14:39 Height 5 ft 8 in Weight 165 lb 8 oz BMI 25.2 BP 120/78 Blood Pressure Location Lt brachial Position Sitting Respiration 15 Pulse 69 Pulse Source Pulse Oximeter Pulse Oximetry (%) 94 Oxygen Delivery Method Room Air Intake Visit Reasons: 3m follow up Intake Note: Pt is here today for 3 month follow up. Allergies No Known Allergies Allergy (Verified 09/26/24 14:44) Medication List - Last Reconciled 09/26/24 by Shruthi Cintron MD bisoprolol fumarate 2.5 mg (1/2 x 5 mg) PO DAILY lisinopril 10 mg PO BID Tobacco use date assessed: 09/26/24 Fall risk assessment: No Falls in past year Last assessed Fall Risk: 09/26/24 Dental Screening Dental Screen Date: 09/26/24 Did you have a dental visit in the last 12 months?: Yes Did you have a dental problem in the last 6 months where you did not have access to dental care?: No Was dental information given to patient?: Patient has dentist HPI 3m follow up HPI Details Patient presents for the follow-up on hypertension controlled on current medications. She had left carpal tunnel surgery and patient reports significantly improved sensation in her left hand PFSH Medical History (Updated 09/26/24 @ 15:15 by Shruthi Cintron MD) Hx of tongue cancer Surgical History Hx of cholecystectomy History of surgery of liver Family History Father Heart attack Hypertension Father Diabetes Social History Housing: House Patient Tobacco Use Status: Former Tobacco user e-Cigarette/Vaping Use: Never Used service: No Current occupational status: retired Current occupation: right hand Cognitive needs: No Hearing needs: No Vision needs: Yes Questionnaire Thrive Questionnaire Date Thrive assessed: 09/26/24 AUDIT C Alcohol Use Questionnaire (AUDIT-C) 1. How often do you have a drink containing alcohol?: Monthly or less 2. How many drinks containing alcohol do you have on a typical day when you are drinking?: 1 or 2 3. How often do you have six or more drinks on one occasion?: Never Total Score: 1 Score Reviewed/Action Taken: Yes MICHELLE-7 AMB Questionnaire MICHELLE-7 Date MICHELLE - 7 assessed: 09/26/24 Feeling nervous, anxious, or on edge: 0 = Not at all Not being able to stop or control worryin = Not at all Worrying too much about different things: 0 = Not at all Trouble relaxin = Not at all Being so restless that it is hard to sit still: 0 = Not at all Becoming easily annoyed or irritable: 0 = Not at all Feeling afraid as if something awful might happen: 0 = Not at all Total MICHELLE-7 score (0-4 normal; 5-9 mild; 10-14 moderate; 15-21 severe): 0 Source: Developed by Drs. Carlitos Terry, Bryanna Reynoso, Jose Gilliam and colleagues, with an educational madan from [employer]. MICHELLE-7 Assessment Billing MICHELLE-7 Assessment Tool: MICHELLE-7 Assessment 37367 Review of Systems Const All systems reviewed & are unremarkable except as noted in HPI and below Eyes Reports no additional complaints ENT Reports no additional complaints Card Reports no additional complaints Resp Reports no additional complaints GI Reports no additional complaints Reports no additional complaints Physical exam (Primary Care) Vital Signs: Last Vital Signs Pulse 69 09/26/24 14:39 Resp 15 09/26/24 14:39 BP 168/78 H 09/26/24 14:39 Pulse Ox 94 09/26/24 14:39 Oxygen Delivery Method Room Air 09/26/24 14:39 BMI result Body Mass Index 25.2 Tobacco/Smoking Status: Tobacco use Status Tobacco use date assessed 09/26/24 09/26/24 14:44 Patient Tobacco Use Status Former Tobacco user 09/26/24 14:44 e-Cigarette/Vaping Use Never Used 09/26/24 14:44 Thrive Assessment: Date of Thrive Assessment Date Thrive assessed 09/26/24 09/26/24 14:44 Const General: no acute distress HENMT Head: Yes normal to inspection Ears: hearing grossly normal bilaterally Eyes General: appearance normal, both eyes and all related structures Neck Neck: Yes supple Resp Effort & Inspection: normal respiratory effort Auscultation: clear to auscultation bilaterally Cardio Rhythm: regular rhythm Heart sounds: S1 normal heart sound present and S2 normal heart sound present GI Inspection: Yes normal to inspection Coding Level of Care Code Est Pt Level 4 (50820) Diagnoses Hyperglycemia R73.9 HTN (hypertension) I10 COPD (chronic obstructive pulmonary disease) J44.9 Additional Codes MICHELLE-7 Assessment Billing - MICHELLE-7 Assessment Tool: MICHELLE-7 Assessment 47546 ([id number]) Assessment & Plan Assessment & Plan (1) Hyperglycemia: Comment: Diet-controlled, A1C 5.2 04/2024 Code(s): R73.9 - Hyperglycemia, unspecified Category: Medical Plan: Continue ADA diet increase physical activity weight loss discussed with the patient, follow-up in 6 months with a fasting labs before (2) HTN (hypertension): Code(s): I10 - Essential (primary) hypertension Category: Medical Plan: Continue current medications (3) COPD (chronic obstructive pulmonary disease): Comment: Ex-smoker quit 20 years ago Code(s): J44.9 - Chronic obstructive pulmonary disease, unspecified Category: Medical Plan: Patient stopped using Breo Orders: Orders Microalbumin, Random (w Creat) 6 Months I10 - Essential (primary) hypertension, J44.9 - Chronic obstructive pulmonary disease, unspecified, R73.9 - Hyperglycemia, unspecified TSH reflex Free T4 6 Months I10 - Essential (primary) hypertension, J44.9 - Chronic obstructive pulmonary disease, unspecified, R73.9 - Hyperglycemia, unspecified Comprehensive [place]. Panel Fast 6 Months I10 - Essential (primary) hypertension, J44.9 - Chronic obstructive pulmonary disease, unspecified, R73.9 - Hyperglycemia, unspecified Lipid Panel 6 Months I10 - Essential (primary) hypertension, J44.9 - Chronic obstructive pulmonary disease, unspecified, R73.9 - Hyperglycemia, unspecified Complete Blood Count Auto Diff 6 Months I10 - Essential (primary) hypertension, J44.9 - Chronic obstructive pulmonary disease, unspecified, R73.9 - Hyperglycemia, unspecified Hemoglobin A1c 6 Months I10 - Essential (primary) hypertension, J44.9 - Chronic obstructive pulmonary disease, unspecified, R73.9 - Hyperglycemia, unspecified Vitamin D 25-OH Total 6 Months E55.9 - Vitamin D deficiency, unspecified Medications: Refilled lisinopril 10 mg PO BID 180 tabs 3RF
== END 2024-09-26 15:14 | disposition home or self-care (01) ==
PROVIDERS: Visit Provider Internal Medicine
DX: R73.9 Hyperglycemia, unspecified (principal); I10 Essential (primary) hypertension; J44.9 Chronic obstructive pulmonary disease, unspecified

== ENCOUNTER → 2024-09-26 14:10 | Outpatient (BNVA) | payer MEDICAID, SELFPAY | PROVIDERS: Visit Provider Internal Medicine | DX: R73.9 Hyperglycemia, unspecified (principal); I10 Essential (primary) hypertension; J44.9 Chronic obstructive pulmonary disease, unspecified | CPT/HCPCS: 96127; 99212 ==

== ENCOUNTER 2024-09-28 14:03 | Outpatient (AMB) | payer MEDICAID, SELFPAY ==
--- NOTE | 2024-09-28 14:10 | MHC.OFFVIS ---
Intake Visit Reasons: PO LT CTR 09/15/24 AR Intake Note: Janice is a 73 year old right hand dominant [place] speaking female who presents today with her son in law Raheem for a post operative visit s/p left carpal tunnel release DOS: 09/15/24 w/ Dr Hutchison. Patient reports that she is doing well with no concerns. Her pain and numbness has resolved. Sutures removed and steris applied Allergies No Known Allergies Allergy (Verified 09/26/24 14:44) HPI HPI PO LT CTR 09/15/24 AR: Details: Janice is a 73 year old right hand dominant [place] speaking female who presents today with her son in law Maciel for a post operative visit s/p left carpal tunnel release DOS: 09/15/24 w/ Dr Hutchison. Patient reports that she is doing well with no concerns. Her pain and numbness has resolved. Sutures removed and steris applied PFS Medical History (Updated 09/26/24 @ 15:15 by Shruthi Cintron MD) Hx of tongue cancer Surgical History Hx of cholecystectomy History of surgery of liver Family History Father Heart attack Hypertension Father Diabetes Social History Housing: House Patient Tobacco Use Status: Former Tobacco user e-Cigarette/Vaping Use: Never Used service: No Current occupational status: retired Current occupation: right hand Cognitive needs: No Hearing needs: No Vision needs: Yes Review of Systems Const All systems reviewed & are unremarkable except as noted in HPI and below Physical Exam Extrem Other: Patient is alert, oriented, and in no acute distress. Neuro: Normal sensation of the tips of all digits of the left hand at this time Vascular: Cap refill brisk Pain: No tenderness to palpation about the incision site on the volar left wrist No pain with range of motion of the left hand ROM: Patient is able to make a closed fist and extend all digits of the left hand fully and without difficulty Skin: No lacerations or abrasions. General: No ecchymosis, erythema, or evidence of infection. Psych: Appears grossly normal Affect normal Attitude cooperative Assessment & Plan Assessment & Plan (1) Carpal tunnel syndrome of left wrist: Code(s): G56.02 - Carpal tunnel syndrome, left upper limb Category: Medical Plan 1. Status post left carpal tunnel release DOS 09/15/2024 Patient appears to be recovering well postoperatively Patient is educated about the typical recovery course At this time, patient was informed she will require no acute follow-up with us, as she is recovering very well Patient will follow-up as needed with any acute concerns Coding Level of Care Code Global (90302) Diagnoses Carpal tunnel syndrome of left wrist G56.02
== END 2024-09-28 14:23 | disposition home or self-care (01) ==
LOC: HO.HOS 14:04
PROVIDERS: PCP Internal Medicine
DX: G56.02 Carpal tunnel syndrome, left upper limb (principal)
CPT/HCPCS: 99024

== ENCOUNTER → 2024-09-28 14:03 | Outpatient (BNVA) | payer MEDICAID, SELFPAY | PROVIDERS: PCP Internal Medicine | DX: Z48.811 Encounter for surgical aftercare following surgery on the nervous system (principal); Z98.890 Other specified postprocedural states | CPT/HCPCS: 99212 ==

== ENCOUNTER 2025-03-25 10:51 | Outpatient (REF) | payer MEDICAID, SELFPAY ==
[2025-03-25 13:54] LABS: MANUAL DIFF FLAG NO
[2025-03-25 13:57] LABS: Hematocrit 44.3 % (37.0-47.0); Hemoglobin 14.6 g/dl (12.0-16.0); Imm Gran Abs Auto 0.01 X10*3/uL (0.00-0.03); Imm Gran Pct Auto 0.2 % (0.0-0.4); Lymphocytes Absolute Auto 1.7 X10*3/uL (1.2-4.9); Mean Corpuscular HGB Conc 33.0 g/dl (31.0-35.0); Mean Corpuscular Hemoglobin 30.4 pg (27.0-33.0); Mean Corpuscular Volume 92.1 fL (80.0-98.0); NRBC Abs Auto 0.000 X10*3/uL (0.0-0.012); NRBC Pct Auto 0.0 /100WBC (0.0-0.2); Platelet Count 187 X10*3/uL (160-400); Red Blood Count 4.81 X10*6/uL (4.20-5.50); White Blood Count 6.5 X10*3/uL (4.8-10.8)
[2025-03-25 14:14] LABS: Hemoglobin A1C 135.5651 umol/L; Total Hemoglobin (HGBA1C) 3726.5819 umol/L
[2025-03-25 14:16] LABS: Alanine Aminotransferase 22 U/L (0-31); Albumin Level 4.6 g/dL (3.5-5.0); Alkaline Phosphatase 59 U/L (39-117); Anion Gap 13 (12-20); Aspartate Amino Transferase 33 U/L (5-31); Blood Urea Nitrogen 13 mg/dL (9-16); Calcium 9.7 mg/dL (8.4-10.2); Carbon Dioxide 28 mmol/L (22-29); Chloride 101 mmol/L (96-108); Cholesterol 210 mg/dL (<200); Estimated Glomerular Filt Rate > 60; HDL Cholesterol 56 mg/dL (>40); Potassium 4.2 mmol/L (3.3-5.1); Sodium 138 mmol/L (135-145); Total Protein 7.4 g/dL (6.5-8.0); Triglycerides 117 mg/dL (<150)
[2025-03-25 15:13] LABS: Microalbum/Creatinine Ratio Ur 129.3 ug/mg cr (<30)
== END 2025-03-25 10:52 | disposition home or self-care (01) ==
LOC: HO.HMGCLDS 10:51
PROVIDERS: PCP Internal Medicine; Visit Provider Internal Medicine
DX: I10 Essential (primary) hypertension (principal); J44.9 Chronic obstructive pulmonary disease, unspecified; E55.9 Vitamin D deficiency, unspecified; R73.9 Hyperglycemia, unspecified
CPT/HCPCS: 36415; 80053; 80061; 82043; 82306; 82570; 83036; 84443; 85025

== ENCOUNTER 2025-04-17 10:51 | Outpatient (AMB) | payer MEDICAID, SELFPAY ==
--- NOTE | 2025-04-17 10:53 | MHC.PC.OV ---
Vital Signs 04/17/25 10:54 04/17/25 11:12 Height 5 ft 8 in Weight 160 lb BMI 24.3 BP 126/80 136/80 Blood Pressure Location Rt brachial Lt brachial Position Sitting Sitting Respiration 17 Pulse 75 Pulse Source Pulse Oximeter Temp 98.2 F Temp Source Oral Pulse Oximetry (%) 97 Oxygen Delivery Method Room Air Intake Visit Reasons: Annual PE Intake Note: Pt is here today for PE. Allergies No Known Allergies Allergy (Verified 04/17/25 10:54) Medication List - Last Reconciled 04/17/25 by Shruthi Cintron MD bisoprolol fumarate 2.5 mg (1/2 x 5 mg) PO DAILY lisinopril 10 mg PO BID umeclidinium-vilanterol 62.5-25 mcg/actuation (Anoro Ellipta) 1 inh inhalation DAILY Tobacco use date assessed: 04/17/25 Fall risk assessment: No Falls in past year Last assessed Fall Risk: 04/17/25 Dental Screening Dental Screen Date: 09/26/24 HPI Annual PE HPI Details Pt presents for PE. Patient complains of chronic cough with small amount of clear sputum on and off for many years. She used to use inhaler when living in [place]. [facility] Medical History COPD (chronic obstructive pulmonary disease) Hyperglycemia HTN (hypertension) Hx of tongue cancer Surgical History Hx of colonoscopy Hx of cholecystectomy History of surgery of liver Family History Father Heart attack Hypertension Father Diabetes Social History Housing: House Patient Tobacco Use Status: Former Tobacco user e-Cigarette/Vaping Use: Never Used service: No Current occupational status: retired Current occupation: right hand Cognitive needs: No Hearing needs: No Vision needs: Yes Questionnaire PHQ-9 Over the last 2 weeks, how often have you been bothered by any of the following problems? 1. Little interest or pleasure in doing things: not at all 2. Feeling down, depressed, or hopeless: not at all 3. Trouble falling or staying asleep, or sleeping too much: not at all 4. Feeling tired or having little energy: not at all 5. Poor appetite or overeating: not at all 6. Feeling bad about yourself - or that you are a failure or have let yourself or your family down: not at all 7. Trouble concentrating on things, such as reading the newspaper or watching television: several days 8. Moving or speaking so slowly that other people could have noticed. Or the opposite - being so fidgety or restless that you have been moving around a lot more than usual: not at all 9. Thoughts that you would be better off or of hurting yourself in some way: not at all Total score: 1 Depression Screening Interpretation: Negative Depression Screening Done: Yes Source: Developed by Drs. Carlitos Terry, Bryanna Reynoso, Jose Gilliam and colleagues, with an educational madan from [employer]. Thrive Questionnaire Date Thrive assessed: 09/26/24 MICHELLE-7 AMB Questionnaire MICHELLE-7 Date MICHELLE - 7 assessed: 09/26/24 Feeling nervous, anxious, or on edge: 0 = Not at all Not being able to stop or control worryin = Not at all Worrying too much about different things: 0 = Not at all Trouble relaxin = Not at all Being so restless that it is hard to sit still: 0 = Not at all Becoming easily annoyed or irritable: 0 = Not at all Feeling afraid as if something awful might happen: 0 = Not at all Total MICHELLE-7 score (0-4 normal; 5-9 mild; 10-14 moderate; 15-21 severe): 0 Source: Developed by Drs. Carlitos Terry, Bryanna Reynoso, Jose Gilliam and colleagues, with an educational madan from [employer]. Review of Systems Const All systems reviewed & are unremarkable except as noted in HPI and below Eyes Reports no additional complaints ENT Reports no additional complaints Card Reports no additional complaints Resp Reports no additional complaints GI Reports no additional complaints Reports no additional complaints Physical exam (Primary Care) Vital Signs: Last Vital Signs Temp 98.2 F 04/17/25 10:54 Pulse 75 04/17/25 10:54 Resp 17 04/17/25 10:54 BP 136/80 04/17/25 11:12 Pulse Ox 97 04/17/25 10:54 Oxygen Delivery Method Room Air 04/17/25 10:54 BMI result Body Mass Index 24.3 Tobacco/Smoking Status: Tobacco use Status Tobacco use date assessed 04/17/25 04/17/25 10:56 Patient Tobacco Use Status Former Tobacco user 04/17/25 10:56 e-Cigarette/Vaping Use Never Used 04/17/25 10:56 PHQ-9: PHQ-9 Score PHQ-9: Total score 1 04/17/25 12:08 Depression Screening Interpretation: Negative Thrive Assessment: Date of Thrive Assessment Date Thrive assessed 09/26/24 04/17/25 10:56 Const General: no acute distress HENMT Head: Yes normal to inspection Ears: hearing grossly normal bilaterally Eyes General: appearance normal, both eyes and all related structures Neck Neck: Yes no lymphadenopathy and Yes supple Resp Effort & Inspection: normal respiratory effort Auscultation: clear to auscultation bilaterally Cardio Rhythm: regular rhythm Heart sounds: S1 normal heart sound present and S2 normal heart sound present GI Inspection: Yes normal to inspection Palpation (GI): Soft to palpation Percussion: Yes normal to percussion Auscultation: normal bowel sounds Coding Level of Care Code Est Pt Prev Care >65y(16935) Diagnoses HTN (hypertension) I10 Hyperglycemia R73.9 COPD (chronic obstructive pulmonary disease) J44.9 Annual physical exam Z00.00 Assessment & Plan Assessment & Plan (1) HTN (hypertension): Code(s): I10 - Essential (primary) hypertension Category: Medical Plan: Continue bisoprolol and lisinopril. Patient will try Anoro inhaler if the cough persists lisinopril will be changed to ARB (2) Hyperglycemia: Comment: Diet-controlled, A1C 5.2 04/2024 Code(s): R73.9 - Hyperglycemia, unspecified Category: Medical Plan: A1c is 5.5, continue ADA diet regular exercise (3) COPD (chronic obstructive pulmonary disease): Comment: Ex-smoker quit 20 years ago Code(s): J44.9 - Chronic obstructive pulmonary disease, unspecified Category: Medical Plan: Start Anoro and follow-up in 2 months (4) Annual physical exam: Comment: nl DEXA 05/2024 Code(s): Z00.00 - Encounter for general adult medical examination without abnormal findings Category: Medical Plan: Well-balanced diet regular physical activity discussed with the patient she is up-to-date with mammogram had colonoscopy in [place] in 2023 Medications: New umeclidinium-vilanterol 62.5-25 mcg/actuation (Anoro Ellipta) 1 inh inhalation DAILY 60 ea 5RF
[2025-04-17 10:54] VITALS: BP 126/80; PULSE 75; RESP 17; TEMP 36.8; O2SAT 97; BMI 24.3
[2025-04-17 11:12] VITALS: BP 136/80
== END 2025-04-17 12:23 | disposition home or self-care (01) ==
LOC: HO.HMCC 10:52
PROVIDERS: PCP Internal Medicine; Visit Provider Internal Medicine
DX: Z00.00 Encounter for general adult medical examination without abnormal findings (principal); I10 Essential (primary) hypertension; R73.9 Hyperglycemia, unspecified; J44.9 Chronic obstructive pulmonary disease, unspecified

== ENCOUNTER → 2025-04-17 10:51 | Outpatient (BNVA) | payer MEDICAID, SELFPAY | PROVIDERS: PCP Internal Medicine; Visit Provider Internal Medicine | DX: Z00.00 Encounter for general adult medical examination without abnormal findings (principal); R05.3 Chronic cough; I10 Essential (primary) hypertension; R73.9 Hyperglycemia, unspecified; J44.9 Chronic obstructive pulmonary disease, unspecified | CPT/HCPCS: 99397 ==